=== PATIENT | female | born 1940 | race Caucasian/White ===

== ENCOUNTER → 2023-08-01 11:12 | Outpatient (BNVA) | payer MEDICARE, SELFPAY | PROVIDERS: PCP Family Medicine; Referring Provider Family Medicine; Visit Provider Podiatrist | DX: E11.51 Type 2 diabetes mellitus with diabetic peripheral angiopathy without gangrene (principal); I70.209 Unspecified atherosclerosis of native arteries of extremities, unspecified extremity; R60.9 Edema, unspecified; B35.1 Tinea unguium; L60.3 Nail dystrophy; M25.572 Pain in left ankle and joints of left foot; R25.2 Cramp and spasm; R09.89 Other specified symptoms and signs involving the circulatory and respiratory systems | CPT/HCPCS: 11719; 11720; 20600; 99204; J0702; J1100 ==

== ENCOUNTER → 2023-12-05 11:04 | Outpatient (BNVA) | payer MEDICARE, SELFPAY | PROVIDERS: PCP Family Medicine; Referring Provider Family Medicine; Visit Provider Podiatrist | DX: E11.51 Type 2 diabetes mellitus with diabetic peripheral angiopathy without gangrene (principal); I70.209 Unspecified atherosclerosis of native arteries of extremities, unspecified extremity; R60.0 Localized edema; B35.1 Tinea unguium; L60.3 Nail dystrophy; M25.572 Pain in left ankle and joints of left foot; N18.6 End stage renal disease; R09.89 Other specified symptoms and signs involving the circulatory and respiratory systems; L65.9 Nonscarring hair loss, unspecified; R23.8 Other skin changes; L60.8 Other nail disorders | CPT/HCPCS: 11721 ==